=== PATIENT | female | born 1930 | race Caucasian/White ===

== ENCOUNTER 2016-07-31 08:24 | Emergency (ER) | payer OTHER ==
[~2016-07-31 08:24] MED LIST: ADALAT; ADALAT CC60 MG PO; ADALAT CC90 MG PO; ASAB PO; AVANDIA4 PO; CINNAMON; CINNAMONPO PO; CRESTOR; CYANO1000T PO; DULERA 100 MCG/13 GM INH; FISH-EPA1000 MG PO; HALF81 PO; HARD NAILS PO; HORMONE CREAM; KLONO5 PO; LISINOPRIL; LOP25 PO; MIRALAXPKT PO; MOBIC15 MG PO; OCEAN NAS; ONGLYZA2.5 MG PO; PLAVIX PO; PRAVAC PO; PRILO PO; PROAIR HFA INH; PROBIOTIC PO; SYN075 PO; SYNTHROID; VITAMIN D1000 UNI1 PO; XALAT OPH; [UNRECOGNIZED DRUG - OTHER]
[2016-07-31 09:10] LABS: BASOPHILS 0.2 %; BASOPHILS ABSOLUTE 0.02 10/3/uL (0.0-0.16); EOSINOPHILS ABSOLUTE 0.31 10/3/uL (0.0-0.53); HEMOGLOBIN 15.6 g/dL (12.0-16.0); IMMATURE GRANULOCYTES 1.6 %; IMMATURE GRANULOCYTES ABSOLUTE 0.17 10/3/uL (0.0-0.11); LYMPHOCYTES 11.3 %; LYMPHOCYTES ABSOLUTE 1.18 10/3/uL (0.67-4.30); MEAN CORPUS HGB CONC 33.9 g/dL (32.0-36.0); MEAN CORPUSCULAR HEMOGLOB 29.5 pg (26.0-34.0); MEAN CORPUSCULAR VOLUME 87.1 fL (80-100); MONOCYTES 9.7 %; MONOCYTES ABSOLUTE 1.01 10/3/uL (0.21-1.20); NEUTROPHILS 74.2 %; NEUTROPHILS ABSOLUTE 7.74 10/3/uL (2.02-8.40); RBC DISTRIBUTION WIDTH 13.2 % (12.0-16.0); RED CELL COUNT 5.28 10/6/uL (4.0-5.6); WHITE BLOOD CELLS 10.4 10/3/uL (4.5-10.5)
[2016-07-31 09:11] LABS: ER CBC TAT 0 Hrs 05 MinsNP; MANUAL DIFF NO %; PLATELET COUNT 223 10/3/uL (150-400)
[2016-07-31 09:16] LABS: INTERNATIONAL NORMAL RATI 1.1 UNITS (-); PARTIAL THROMBO TIME 26.9 SEC (22.5-37.2); PROTIME (NOT ORD) 14.5 SEC (12.0-14.5)
[2016-07-31 09:26] LABS: BUN (BLOOD UREA NITROGEN) 11 MG/DL (6-23); CALCIUM, SERUM 9.2 MG/DL (8.5-10.4); CHEST PAIN PROFILE TAT 0 Hrs 21 Mins; CHLORIDE, SERUM 105 MMOL/L (96-112); CO2 (CARBON DIOXIDE) 27 MMOL/L (24-34); CREATININE 0.78 MG/DL (0.55-1.02); GFR AFRICAN AMERICAN 80 ML/MIN (>=60); GFR NON AFRICAN AMERICAN 69 ML/MIN (>=60); GLUCOSE, SERUM 172 MG/DL (60-99); POTASSIUM, SERUM 3.6 MMOL/L (3.5-5.3); SODIUM, SERUM 142 MMOL/L (135-148); TROPONIN I <0.02 NG/ML (<0.05)
[2016-07-31 09:27] LABS: DIRECT BILIRUBIN 0.2 MG/DL (0.0-0.4); TOTAL BILIRUBIN 1.2 MG/DL (0-1.2)
[2016-07-31 11:37] LABS: ASCORBIC ACID (UR NOT ORDER) NEG (NEG); BILIRUBIN, URINE NEGATIVE (NEG); ER URINALYSIS TAT 0 Hrs 07 Mins; KETONE, URINE NEGATIVE (NEG); LEUKOCYTE ESTERASE(NOT OR NEG (NEG); NITRITE (URINE) NEG (NEG); WBC (NOT ORDERED) (RFLEX) 2 (0-5)
== END 2016-07-31 13:08 | disposition home or self-care (01) ==
LOC: ER 08:24
PROVIDERS: Emergency Medicine
DX: R53.1 Weakness (principal); J06.9 Acute upper respiratory infection, unspecified; R06.2 Wheezing; J44.9 Chronic obstructive pulmonary disease, unspecified; I10 Essential (primary) hypertension; I25.10 Atherosclerotic heart disease of native coronary artery without angina pectoris; E11.9 Type 2 diabetes mellitus without complications; Z95.5 Presence of coronary angioplasty implant and graft; Z88.5 Allergy status to narcotic agent; Z88.8 Allergy status to other drugs, medicaments and biological substances; Z91.040 Latex allergy status; Z79.82 Long term (current) use of aspirin; Z79.899 Other long term (current) drug therapy
CPT/HCPCS: 71010; 80048; 80076; 81001; 83735; 83880; 84484; 85025; 85610; 85730; 87040; 93005; 94640; 99285